=== PATIENT | male | born 1950 | race Caucasian/White ===

== ENCOUNTER 2018-12-12 08:44 | Day surgery (SDC) | payer OTHER ==
[~2018-12-12 08:44] MED LIST: Lidocaine 1% 4 ML ONE; Propofol 200 MG/20 ML SDV ONE
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
[2018-12-12] MEDS ORDERED: Lidocaine 1%/Sod Bicarbonate in NS 8.4% 1 ML Syringe IDERM PRN (10:05)
[2018-12-12] MEDS ORDERED: Sodium Chloride 0.9% 10 ML Syringe FLUSH PRN (10:05)
[2018-12-12] MEDS ORDERED: Lactated Ringers 1,000 ML IV SCH (10:15)
[2018-12-12] MEDS ORDERED: Midazolam 1 MG/ML 2 ML SDV ONE (10:37)
[2018-12-12] MEDS ORDERED: Tetracaine HCl/PF 0.5% 4 ML Bottle EYERT ONE (11:19)
[2018-12-12] MEDS ORDERED: Lidocaine 1% 30 ML SDV ONE (11:21)
[2018-12-12] MEDS ORDERED: Lidocaine 1% with EPINEPHrine 1:100,000 20 ML MDV ONE (11:22)
[2018-12-12] MEDS ORDERED: Erythromycin Base 0.5% Ophth Oint 1 GM Tube ONE (11:26)
--- NOTE | 2018-12-12 11:39 | PCM48HPAN ---
Post Anesthesia Note - EVALUATION WITHIN 48HRS OF ANESTHETIC Vital Signs in Normal Range: Yes Patient Participated in Evaluation: Yes Respiratory Function Stable: Yes Airway Patent: Yes Cardiovascular Function Stable: Yes Hydration Status Stable: Yes Pain Control Satisfactory: Yes Nausea and Vomiting Control Satisfactory: Yes Mental Status Recovered: Yes
[2018-12-12] MEDS ORDERED: fentaNYL 100 MCG/2 ML SDV ONE (11:51)
== END 2018-12-12 13:30 | disposition home or self-care (01) ==
LOC: JD.SDS 08:44
PROVIDERS: ATTEND Ophthalmology
DX: H02.032 Senile entropion of right lower eyelid (principal); E11.36 Type 2 diabetes mellitus with diabetic cataract; H25.813 Combined forms of age-related cataract, bilateral; H02.834 Dermatochalasis of left upper eyelid; H02.831 Dermatochalasis of right upper eyelid; I10 Essential (primary) hypertension; E78.00 Pure hypercholesterolemia, unspecified; Z87.891 Personal history of nicotine dependence; Z79.82 Long term (current) use of aspirin; Z79.84 Long term (current) use of oral hypoglycemic drugs; Z79.899 Other long term (current) drug therapy
CPT/HCPCS: 67924; A9270; J2001; J2250; J2704; J3010; J7120